=== PATIENT | female | born 1970 | race Hispanic/Latino ===

== ENCOUNTER 2021-10-01 10:45 | Emergency (ER) | payer BC ==
[~2021-10-01] VITALS: Ht 162.6 cm; Wt 65.4 kg
[2021-10-01] MEDS ORDERED: DIPHTH/TETANUS/ACEL. PERTUSSIS 0.5 ML SYR IM ONE (11:30)
[2021-10-01] MEDS ORDERED: TETANUS/DIPHTHERIA TOX ADULT 0.5 ML SYR ONE ×2 (11:57→12:11)
== END 2021-10-01 12:43 | disposition home or self-care (01) ==
LOC: FSED 11:03
DX: S61.432A Puncture wound without foreign body of left hand, initial encounter (principal); W20.8XXA Other cause of strike by thrown, projected or falling object, initial encounter; Y93.H9 Activity, other involving exterior property and land maintenance, building and construction; Y99.8 Other external cause status; Z23 Encounter for immunization
CPT/HCPCS: 90471; 90714; 96372; 99283

== ENCOUNTER 2023-12-26 14:15 | Emergency (ER) | payer BC ==
[~2023-12-26] VITALS: Ht 160 cm; Wt 66.4 kg
[2023-12-26 14:43] VITALS: PULSE 69; RESP 18; TEMP 98.6; O2SAT 100
[2023-12-26] MEDS ORDERED: PREDNISONE50 MG PO (15:28)
[2023-12-26] MEDS ORDERED: ULTRAM 50MG50 MG PO (15:29)
[2023-12-26] MEDS: PREDNISONE 20 MG TAB PO ONE (15:47)
== END 2023-12-26 15:49 | disposition home or self-care (01) ==
LOC: FSED 14:27
DX: M79.651 Pain in right thigh (principal); M54.31 Sciatica, right side
CPT/HCPCS: 99283; J7512